=== PATIENT | male | born 1965 | race Hispanic/Latino ===

== ENCOUNTER 2018-06-18 15:24 | Emergency (ER) | payer MEDICARE, OTHER ==
[~2018-06-18] VITALS: Ht 165.1 cm; Wt 72.7 kg
[~2018-06-18 15:24] MED LIST: BACTRIM DS1 TAB OR; CEPHALEXIN500 MG OR; CIPRO500 MG OR; CORTISPORIN OTI10 ML AS; DOXYCYC MONO100 MG OR; NO MEDS; PERCOCET 5/325M1 TAB OR; ULTRAM50 MG OR; [UNRECOGNIZED DRUG - OTHER]
[2018-06-18 16:13] LABS: URINE BLOOD DIPSTICK LARGE (NEGATIVE); URINE GLUCOSE - DIPSTICK NEGATIVE (NEGATIVE); URINE KETONE NEGATIVE (NEGATIVE); URINE LEUK ESTERASE TRACE (NEGATIVE); URINE PROTEIN - DIPSTICK 30 mg/dL (NEG-TRACE); URINE SPECIFIC GRAVITY >=1.030
[2018-06-18 16:18] LABS: URINE BILIRUBIN - DIPSTICK SMALL (NEGATIVE); URINE CLARITY CLOUDY; URINE NITRITE - DIPSTICK POSITIVE (Negative)
[2018-06-18 16:19] LABS: URINE COLOR RED
[2018-06-18 16:28] LABS: URINE BACTERIA MODERATE hpf; URINE RBC TNTC RBC/hpf (0-5); URINE SQUAMOUS EPITHELIAL CELL FEW EPI/hpf (0-FEW)
[2018-06-18 16:40] LABS: HEMATOCRIT 44.7 % (39.0-50.0); IMMATURE GRANULOCYTES 0.1 % (0.0-5.0); MEAN CELL VOLUME 88.3 fL CALC (80.0-100.0); MEAN CORPUSCULAR HGB 31.6 pG CALC (26.0-32.0); MEAN CORPUSCULAR HGB CONC 35.8 g/L CALC (32.0-36.0); NEUT# 4.39 thou/uL (1.82-7.42); RED BLOOD COUNT 5.06 mill/uL (4.70-6.10); RED CELL DISTRI WIDTH 12.6 % (11.5-15.5)
[2018-06-18 16:48] LABS: ALBUMIN 4.1 g/dL (3.2-5.0); ALKALINE PHOSPHATASE 81 u/l (38-126); AMYLASE 66 u/l (30-110); ANION GAP 13 (6-22 (CALC)); BILIRUBIN, TOTAL 1.1 mg/dL (0.0-1.4); BUN 18 mg/dL (9-20); BUN/CREATININE RATIO 17 (12-20 (CALC)); CARBON DIOXIDE 25 mmol/l (22-30); CHLORIDE 109 mmol/l (95-108); GFR > 60 ML/MIN (>=60 (CALC)); GFR FOR AFR.AMER. > 60 ML/MIN (>=60 (CALC)); LIPASE 75 u/l (23-300); POTASSIUM 4.2 mmol/l (3.5-5.1); SGOT/AST 38 u/l (17-59); SODIUM 143 mmol/l (137-146); TOTAL PROTEIN 7.8 g/dL (6.3-8.2)
[2018-06-18] MEDS ORDERED: MACROBID100 MG PO (17:38)
[2018-06-18] MEDS ORDERED: ULTRAM50 M1 PO (17:38)
[2018-06-18 17:56] VITALS: BP 154/85
== END 2018-06-18 18:11 | disposition home or self-care (01) ==
LOC: ED 15:24
PROVIDERS: Emergency Medicine
DX: N23 Unspecified renal colic (principal); N39.0 Urinary tract infection, site not specified; I10 Essential (primary) hypertension; E78.00 Pure hypercholesterolemia, unspecified
CPT/HCPCS: Q9967

== ENCOUNTER 2022-06-06 08:16 | Emergency (ER) | payer MEDICARE, OTHER ==
[~2022-06-06] VITALS: Ht 165.1 cm; Wt 74.0 kg
[2022-06-06] VITALS (8 sets, daily range): BP systolic 138–170; BP diastolic 70–95
[~2022-06-06 08:16] MED LIST changes: +MACROBID100 MG PO; +ULTRAM50 M1 PO
[2022-06-06] MEDS ORDERED: EPIPEN 2-P0.3 MG/0.3 IM (10:12)
== END 2022-06-06 10:35 | disposition home or self-care (01) ==
LOC: ED 08:16
DX: L50.0 Allergic urticaria (principal); I25.10 Atherosclerotic heart disease of native coronary artery without angina pectoris; E78.00 Pure hypercholesterolemia, unspecified
CPT/HCPCS: J1100